=== PATIENT | male | born 1940 | race Caucasian/White ===

== ENCOUNTER 2016-08-26 05:24 | Inpatient (IN) | payer OTHER, BC ==
[~2016-08-26] VITALS: Ht 165.1 cm; Wt 71.8 kg
--- NOTE | ~2016-08-26 | S ---
[facility] [address] [place] [address] SURGICAL PATH RPT PROCEDURE Name: THOMAS TANNER Room #: 435-P ADM IN M.R.#: [id number] Admission: 08/26/16 Date of : 42 Discharge: Report #: [id number] Path Case #: [id number] PATHOLOGY REPORT COLLECTION DATE: 08/26/2016 RECEIVED DATE: 08/26/2016 SUBMITTING PHYS: Dr. Aj Villela OTHER PHYS: Dr. Becca Martinez ADDENDUM REPORT (Order Date: 08/29/2016 15:50) ADDENDUM COMMENT: Acid fast bacillus and Gomori methenamine silver stains performed on A16 are negative for mycobacterial as well as fungal elements, respectively. The originally rendered diagnoses remain unchanged. (IUV:csd; d/t: 08/29/2016) Professional services performed by [facility] at [facility] [address] [place] [address] Technical services performed by [facility] at [address] [place] [address], [address] [place] [address]. ELECTRONICALLY SIGNED BY: Gia Alonso M.D. DATE/TIME:08/29/2016 16:05 SPECIMEN(S) RECEIVED: A.Abdominal wall mass and peritoneum with small bowel * * * * * * * * * * * * FINAL DIAGNOSIS: A. Abdominal wall mass and peritoneum with small bowel, resection: - Mass formed by a multiloculated abscess extending from small bowel subserosa to subcutaneous tissue, measuring 8.7 cm. - Abscess extends to the deep margin. - Overlying small bowel mucosa free of active inflammation, dysplasia or malignancy. - Skin with no diagnostic abnormalities. - Skeletal muscle with reactive changes and foci of acute inflammation adjacent to abscess. - Negative for malignancy. COMMENT: AFB and GMS are ordered and will be reported as an addendum to follow. Electrician Telephone slides are reviewed by Dr. Megan Otero. [facility] [address] [place] [address] SURGICAL PATH RPT PROCEDURE Name: THOMAS TANNER Room #: 435-[facility] IN [facility].#: [id number] Admission: 08/26/16 Date of : 42 Discharge: Report #: [id number] Path Case #: [id number] Findings are discussed with Dr. Villela at 1:15 pm on 08/28/16/ (IUV; 08/28/16) PATHOLOGIST: Gia Alonso M.D. REPORT ELECTRONICALLY SIGNED BY: Gia Alonso M.D. DATE/TIME: 08/28/2016 13:41 * * * * * * * * * * * * GROSS PATHOLOGY: The specimen is received in formalin, labeled "Jacksonabdominal wall mass with peritoneum was small bowel" is a 682 g duff white ellipse of skin with attached soft tissue, peritoneum and small bowel oriented as long stitch superior and short stitch medial. The skin with underlying soft tissue measures 11.3 x 7.8 x 8.2 cm and the attached small bowel segment which is attached to the deep, peritoneal surface, measures 8.7 cm in length by 5.0 cm in circumference. The outer surface of the soft tissue is yellow-duff with a smooth glistening peritoneum on the deep surface. The small bowel serosa is duff-pink, smooth and displays a focal adhesion to the peritoneal surface of the soft tissue, located 2.2 cm from the closest small bowel resection margin. The mesentery runs the entire length of the specimen and measures up to 4.1 cm in thickness. The superior medial soft tissue margin is inked blue, superior lateral soft tissue margin is inked green, inferior medial soft tissue margin is inked yellow, inferior lateral soft tissue margin is inked orange and the deep surface is inked black. The specimen is serially sectioned from medial to lateral to reveal an 8.7 x 7.2 x 6.8 cm cyst containing yellow-duff fibrinous exudate. The cystic lining is duff-pink, and erythematous. There is multifocal fibrosis surrounding the cyst. The lesion is 2.3 cm from the medial margin, 0.6 cm from the superior margin, 0.6 cm from the inferior margin, 0.3 cm from the deep margin, 0.3 cm from the lateral margin and 0.7 cm from the skin surface. The small bowel is opened longitudinally to reveal a duff-pink mucosa with undulating folds and a 0.5 cm shallow depression adjacent to the adhesions. Sectioning through the small bowel reveals intestinal wall ranges in thickness from 0.6 up to 0.8 cm. The mesentery has a soft yellow lobular cut surface. Section code: A1 through A2-perpendicular sections of medial margin, A3-represent sections of superior margin closest to lesion, A4-group sales representative sections of inferior margin closest to lesion, A5-rectal exam sections of deep margin closest to lesion a 6 through A7-group sales representative sections of deep margin adjacent to adherent small bowel, A8-skin surface closest to lesion, A9-perpendicular sections of lateral margin closest to lesion, A10 through X92-znirnybcpfphqh sections of cyst, A14 and O86-jfnftala resection margins from small bowel segment A16 through R42-ddxzcdalmngfpu section of small bowel with adhesions and adjacent soft tissue. [address] [address] SURGICAL PATH RPT PROCEDURE Name: THOMAS TANNER Room #: 435-P ADM IN M.R.#: [id number] Admission: 08/26/16 Date of : 42 Discharge: Report #: [id number] Path Case #: [id number] (DRL; 08/27/2016) CLINICAL HISTORY: Abdominal wall mass. INITIAL CPT CODE(S): A; 32069, 52663, 63159 Professional services performed by [facility] at [facility] [address], [place] [address] Technical services performed by [facility] at [address] [place] [address], [address] [address]. [facility] [address] [place] [address] PHONE: [phone] DIRECTOR: Farhad Bonilla M.D. * * * END OF REPORT * * *
--- NOTE | ~2016-08-26 | O ---
[facility] [place] [address] [place] [address] OPERATIVE REPORT Name: THOMAS TANNER Room #: 448-P ADM IN M.R.#: [id number] Admission: 08/26/16 Attend Phys: Aj Villela MD Discharge: Date of : 42 Report #: [id number] THIS REPORT FOR: //name// CC: Chadwick Graham MD [facility] Aj Davidson MD DATE OF SERVICE: 08/26/2016 PREOPERATIVE DIAGNOSIS: Right abdominal wall mass starting in the oblique muscles. POSTOPERATIVE DIAGNOSIS: Right abdominal wall mass with adherent omentum and small bowel. PROCEDURES PERFORMED: Excision of abdominal mass along with a small portion of omentum and small bowel resection. ANESTHESIA: General. COMPLICATIONS: None. ESTIMATED BLOOD LOSS: 20 mL. DESCRIPTION OF PROCEDURE: With the patient under general anesthesia, IV antibiotic was administered. His abdomen was prepped and draped in sterile fashion. The mass was palpable. An ellipse of skin was drawn over the mass. The skin overlying will be removed after incising through the skin and subcutaneous tissue. Dissection was carried in the subcutaneous tissue using cautery. I did not get into the mass. The fascia surrounding this was excised. It was about a centimeter and a half rim of normal fascia. Inferiorly, the muscle was identified and noted to be slightly thickened. I went ahead and went slightly more inferior to this to get more margin. I am not sure what this lesion is. The inferior epigastric artery was suture ligated with 3-0 Vicryl suture. Posterior sheath was then opened. When I opened the posterior sheath, I realized that there is intra-abdominal adhesion to this mass. Initially, I thought it was the omentum and then realized the portion of small bowel was stuck on there. There were actually 2 loops of small bowel. When I took the first loop back , it felt like it was fairly loose from it. The second loop was more adherent to it. I decided to remove both the segment in the right proximal one. They were adjacent to each other. The transverse colon was also adherent to this, but I could see a separation and the colon was able to be from this. Part of the omentum was also removed. The small bowel was dissected and then divided with HOSEA. The mass was then further dissected laterally and removed intact. Suture was placed medially and also superiorly [address] [address] OPERATIVE REPORT Name: CIROTHOMAS Room #: 448-P [facility] IN M.R.#: [id number] Admission: 08/26/16 Attend Phys: Aj Villela MD Discharge: Date of : 42 Report #: [id number] for the pathologist orientation. The pathologist was called in the room to take the specimen. The bowel was then anastomosed together. Lap tape was placed around the wounds. Also, a towel was placed around this. The end of the staple line at the anterior mesenteric side was trimmed off, with abhishek to each other on the site and HOSEA was put together and then fired, creating a vyfi-ca-sikc functioning anastomosis. The enterotomy was closed with TA60. There was no spillage. The anastomosis was reinforced with 3-0 Vicryl. I could milk HOSEA content through the anastomosis. No leak seen. The small bowel was returned in the abdominal cavity. Irrigation was performed. There was a large defect of the wall that was taken with this mass. A Ventrio patch was placed over this since there was essentially minimal contamination. The mesh was placed. Biological would not probably work in this area since I was not able to bring the tissue together. The Ventrio patch measured 11 x 17 cm. This was placed transversely. The 0 Prolene suture was started medially, 2 separate sutures. One suture was sewn in the upper edge of the mesh and then carried laterally. A second 0 Prolene suture was carried inferiorly. They were tied to each other laterally. Irrigation was performed. Subcutaneous tissue was closed with 3-0 PDS. Skin was closed with 4-0 PDS. Steri-Strips, 4 x 4's and OpSite were used for dressing. The patient tolerated the procedure well. At this point, I do not know what the etiology this is. We are on the cautious side with the small bowel and the omentum that was stuck in the intra-abdominal surface and this was removed. By: 06 0000 Aj Villela MD /nt
--- NOTE | ~2016-08-26 | H ---
[facility] [place] [address] [place] [address] HISTORY AND PHYSICAL Name: THOAMS TANNER Room #: PRE [facility] M.R.#: [id number] Admission: Attend Phys: Aj Villela MD Discharge: Date of : 42 Report #: [id number] THIS REPORT FOR: //name// CC: Dr. Naseem Contreras ADMITTING DIAGNOSIS: Right abdominal mass. HISTORY OF PRESENT ILLNESS: The patient is a 76-year-old who noticed a lump on the right side. This was identified fairly recently. He was having trouble turning in bed, was quite uncomfortable. His appetite has been decreased. This has burning sensation. No weight loss. He does complain of some difficulty with constipation. No difficulty urinating. Patient is under care of Naseem and patient was seen by Dr. Gusman who obtained a CT scan. The patient has a ovoid, lobulated, septated, exophytic mass rising from the oblique muscle. No stranding or inflammatory changes. Possibility of a primary sarcoma was described. This was thought that it could be a hematoma, but less likely given the findings of stranding, inflammatory changes. He is on Plavix, but he never noticed any bruising which I think would be visible if this was a hematoma. Because of the large size and the possibility of having a tumor or possibly even a low-grade malignancy, I recommend that he have this excised. He is brought in for the procedure. 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 No history of prior cancer. He has a history of coronary artery disease. PAST SURGICAL HISTORY: Groin hernia 30 years ago, had a stent 2 years ago. MEDICATIONS: Lisinopril, Plavix, aspirin, atorvastatin. ALLERGIES: He is allergic to ORAL CONTRAST PORTION OF CT. FAMILY HISTORY: Father did of cancer, possible lung cancer. His maternal uncle also had cancer history. SOCIAL HISTORY: The patient is retired. He does smoke 2-pack a day, but has not smoked for about a week and a half. He does not drink currently. He did drink quite a bit in [place] 10 years ago. REVIEW OF SYSTEMS: No chest pain, shortness of breath or palpitation. PHYSICAL EXAMINATION: The patient does have a large right abdominal mass. There is no bruising this area. This is mildly tender to palpation. It does feel somewhat soft. [facility] [address] [place] [address] HISTORY AND PHYSICAL Name: THOMAS TANNER Room #: PRE [facility]#: [id number] Admission: Attend Phys: Aj Villela MD Discharge: Date of : 42 Report #: [id number] IMPRESSION AND PLAN: The patient is a 76-year-old with a mass in the right abdomen. This appears to be coming from the muscle level. This is not subcutaneous in nature. The oblique muscle will have to be removed. I do not know if this extends into the peritoneum or I do not think it goes into the peritoneal cavity, but he could be adherent to the peritoneum. When this is excised, it is going to leave an abdominal wall defect. He will have to have a patch placed here to prevent any hernia formation. This was discussed in detail with the patient. The risk of bleeding, infection, mesh infection was discussed. The patient agrees and wants to proceed. I did speak with Dr. Graham because of the procedure not involving internal organs. Dr. Graham has given cardiac approval, clearance for surgery. He will stop his Plavix 5 days before surgery. By: 2116 [id number] Aj Villela MD /nt
[~2016-08-26 05:24] MED LIST: ASPIR 8181 M1 PO; LIPITOR40 MG PO; LISINOPRIL10 MG PO; LISINOPRIL5 MG OR; PLAVIX 75 MG TA75 M1 PO; ZYVOX600 MG PO
[2016-08-26 07:44] VITALS: BP 79/39
[2016-08-26 13:08] VITALS: BP 88/52
[2016-08-26 16:22] VITALS: BP 90/50
[2016-08-26 20:08] VITALS: BP 86/51
[2016-08-27 00:02] VITALS: BP 80/55
[2016-08-27 04:32] VITALS: BP 97/52
[2016-08-27 05:55] LABS: HEMATOCRIT 39.7 % (42.0-52.0); MCH 26.9 pg (26.0-34.0); MCHC 32.7 g/dL (28.0-37.0); MCV 82.3 fL (80.0-100.0); RBC 4.83 mil/uL (4.50-6.00); WBC 15.8 thou/uL (4.0-11.0)
[2016-08-27 06:08] LABS: CREATININE 1.5 mg/dL (0.7-1.3); POTASSIUM 4.6 mmol/L (3.5-5.1)
[2016-08-27 09:35] VITALS: BP 88/49
[2016-08-27 13:37] LABS: POC BE -4 mmol/L (-2.0 to +3.0); POC CA IONIZED 4.9 mg/dL (4.5-5.3); POC FiO2 100 %; POC GLUCOSE 131 mg/dL (70-99); POC HCO3 22.6 mmol/L (22.0-26.0); POC HEMOGLOBIN 12.2 g/dL (14.0-18.0); POC POTASSIUM 4.4 mmol/L (3.5-5.1); POC SODIUM 136 mmol/L (136-145); POC pCO2 47.2 mmHg (35.0-45.0); POC pH 7.288 (7.360-7.450)
[2016-08-27 20:04] VITALS: BP 124/78
[2016-08-27 23:46] VITALS: BP 101/46
[2016-08-28 04:28] VITALS: BP 105/81
[2016-08-28 05:34] LABS: HEMATOCRIT 39.3 % (42.0-52.0); HEMOGLOBIN 12.7 gm/dL (14.0-18.0); MCH 26.7 pg (26.0-34.0); MCHC 32.4 g/dL (28.0-37.0); MCV 82.4 fL (80.0-100.0); RBC 4.77 mil/uL (4.50-6.00); RDW 15.5 % (10.5-14.5); WBC 13.9 thou/uL (4.0-11.0)
[2016-08-28 05:41] LABS: CALCIUM 9.1 mg/dL (8.5-10.1); CREATININE 1.1 mg/dL (0.7-1.3); POTASSIUM 4.4 mmol/L (3.5-5.1)
[2016-08-28 08:41] VITALS: BP 134/79
[2016-08-28 12:29] VITALS: BP 111/80
[2016-08-28 16:17] VITALS: BP 100/75
[2016-08-28 19:30] VITALS: BP 128/67
[2016-08-29 03:43] VITALS: BP 128/82
[2016-08-29 05:46] LABS: HEMOGLOBIN 12.2 gm/dL (14.0-18.0); MCH 26.4 pg (26.0-34.0); MCHC 32.1 g/dL (28.0-37.0); MCV 82.4 fL (80.0-100.0); RBC 4.61 mil/uL (4.50-6.00); RDW 15.8 % (10.5-14.5); WBC 12.4 thou/uL (4.0-11.0)
[2016-08-29 06:06] LABS: CALCIUM 8.7 mg/dL (8.5-10.1); CREATININE 0.9 mg/dL (0.7-1.3); POTASSIUM 4.2 mmol/L (3.5-5.1)
[2016-08-29 08:00] VITALS: BP 118/69
[2016-08-29 12:07] VITALS: BP 117/90
[2016-08-29 16:11] VITALS: BP 116/77
[2016-08-29 20:30] VITALS: BP 96/71
[2016-08-30 00:40] VITALS: BP 107/74
[2016-08-30 03:20] VITALS: BP 118/85
[2016-08-30 05:54] LABS: ABSOLUTE NEUTROPHILS 8.4 thou/uL (1.4-8.2); BASOPHILS 0.5 % (0.0-2.0); HEMATOCRIT 37.6 % (42.0-52.0); HEMOGLOBIN 12.3 gm/dL (14.0-18.0); LYMPHOCYTES 16.2 % (24.0-44.0); MCH 26.6 pg (26.0-34.0); MCHC 32.8 g/dL (28.0-37.0); MCV 81.3 fL (80.0-100.0); MONOCYTES 9.3 % (1.0-8.0); PLATELET COUNT 386 thou/uL (150-400); RBC 4.63 mil/uL (4.50-6.00); RDW 15.5 % (10.5-14.5); WBC 11.8 thou/uL (4.0-11.0)
[2016-08-30 06:13] LABS: CALCIUM 9.1 mg/dL (8.5-10.1); CREATININE 1.1 mg/dL (0.7-1.3)
[2016-08-30 06:21] LABS: MANUAL DIFF NO
[2016-08-30 07:35] VITALS: BP 122/81
[2016-08-30 13:09] LABS: URINE BILIRUBIN NEGATIVE (Negative); URINE BLOOD 3+ (Negative); URINE GLUCOSE-RANDOM* NEGATIVE (Negative); URINE KETONES NEGATIVE (Negative); URINE NITRITE NEGATIVE (Negative); URINE PROTEIN (DIPSTICK) TRACE (Negative); URINE UROBILINOGEN 0.2 E.U./dl (0.2-1.0)
[2016-08-30 13:10] LABS: URINE COLOR PINK
[2016-08-30 13:17] LABS: BACTERIA 1-9 Few /HPF (None Seen); CASTS None Seen /LPF (None Seen); CRYSTALS None Seen /LPF (None Seen); SQUAMOUS 0-3 Few /LPF (0-3); URINE RBC >20 Many /HPF (0-2); URINE WBC None Seen /HPF (0-5)
[2016-08-30 19:19] VITALS: BP 107/74
[2016-08-31 04:15] VITALS: BP 116/27
[2016-08-31 08:00] VITALS: BP 128/94
[2016-08-31] MEDS ORDERED: TRAMADOL 50 MG50 MG PO (11:51)
[2016-08-31 12:00] VITALS: BP 120/81
[2016-08-31 13:13] VITALS: BP 120/81
[2016-08-31 13:14] VITALS: BP 120/81
[2016-08-31 15:54] VITALS: BP 120/81
== END 2016-08-31 15:06 | disposition home or self-care (01) | DRG 329 ==
LOC: TBA 05:24 → OR 05:24 → TBA 05:25 → OR 12:22 → 4S 13:02
PROVIDERS: Internal Medicine Geriatric Medicine; Surgery
PROC: 0DB80ZZ Excision of Small Intestine, Open Approach (ICD-10-PCS; principal; 2016-08-26)
PROC: 0JB80ZZ Excision of Abdomen Subcutaneous Tissue and Fascia, Open Approach (ICD-10-PCS; principal; 2016-08-26)
DX: K63.1 Perforation of intestine (nontraumatic) (principal); G93.41 Metabolic encephalopathy; K56.7 Ileus, unspecified; J44.9 Chronic obstructive pulmonary disease, unspecified; I10 Essential (primary) hypertension; I73.9 Peripheral vascular disease, unspecified; I25.10 Atherosclerotic heart disease of native coronary artery without angina pectoris; I95.9 Hypotension, unspecified; F17.210 Nicotine dependence, cigarettes, uncomplicated; E78.5 Hyperlipidemia, unspecified; Z98.61 Coronary angioplasty status; Z91.041 Radiographic dye allergy status; Z80.9 Family history of malignant neoplasm, unspecified; Z71.6 Tobacco abuse counseling
CPT/HCPCS: 10100; 50010; 50101; 50386; 50455; 51390; 51391; 51435; 52190; 54109; 54118; 56524; 56525; 56526; 56527; 62110; 62900; 70005

== ENCOUNTER 2019-12-30 07:42 | Inpatient (IN) | payer OTHER ==
[~2019-12-30] VITALS: Ht 170.2 cm; Wt 99.5 kg
[2019-12-30] VITALS (7 sets, daily range): BP systolic 116–156; BP diastolic 70–93
[~2019-12-30 07:42] MED LIST changes: +SYMBICORT160 MCG/4. INH; +TRAMADOL 50 MG50 MG PO
[2019-12-30] MEDS ORDERED: CARVEDILOL12.5 MG PO (07:43)
[2019-12-30] MEDS ORDERED: BENAZEPRIL HCL5 MG PO (08:52)
[2019-12-30 09:05] LABS: HEMATOCRIT 45.3 % (42.0-52.0); HEMOGLOBIN 14.7 gm/dL (14.0-18.0); MCH 24.9 pg (26.0-34.0); MCHC 32.5 g/dL (28.0-37.0); MCV 76.6 fL (80.0-100.0); RBC 5.92 mil/uL (4.50-6.00); RDW 21.7 % (10.5-14.5); WBC 9.4 thou/uL (4.0-11.0)
[2019-12-30 09:26] LABS: CALCIUM 9.2 mg/dL (8.5-10.1); CREATININE 1.5 mg/dL (0.7-1.3); POTASSIUM 4.5 mmol/L (3.5-5.1)
[2019-12-30 13:29] LABS: APTT 26.9 Seconds (24.5-32.8); PROTIME 10.7 Seconds (9.3-11.4)
[2019-12-30 13:39] LABS: ALBUMIN 3.2 g/dL (3.4-5.0); CALCIUM 8.6 mg/dL (8.5-10.1); CREATININE 1.4 mg/dL (0.7-1.3); POTASSIUM 4.7 mmol/L (3.5-5.1); TOTAL BILIRUBIN 0.5 mg/dL (0.2-1.0); TOTAL PROTEIN 6.7 g/dL (6.4-8.2)
--- NOTE | 2019-12-30 15:35 | NUR ---
REC PT FROM [employer] ADMINISTRATOR, OFF RESTRICTIONS OF BED REST, A&0X4, SLIGHTLY GRAND RONDE TRIBES, L GROIN SITE MYNX CDI SOFT. PT AMB STEADY, HAS CHRONIC BACK PAIN. WILL PERFORM ADMISSION AND ASSESS/MEDS. CAME IN WITH HIS OWN 02, WILL PLACE LABEL. REPORTS OF POSSIBLE SURGERY TOMORROW PENDING COVID RESULTS, SWAB TAKEN ALREADY. ENCOURAGED PT TO USE CALL LIGHT FOR ANY NEEDS. WILL CONTINUE TO MONITOR. SEE SEPARATE INTERVENTIONS FOR ASSESSMENTS
--- NOTE | 2019-12-30 16:37 | CATHLAB ---
[facility] [place] [address] [place] [address] INVASIVE PROCEDURE REPORT Name: THOMAS TANNER Room #: 210-P [facility] SANGEETHA Tolentino#: [id number] Admission: 12/30/19 Attend Phys: Maxim Colon MD Discharge: Date of : 42 Report #: [id number] THIS REPORT FOR: cc: Becca Contreras MD, Stany A. MD Lundgren, Craig H. MD [facility] ~ APPROVED REPORT Study performed: 12/30/2019 11:12:30 Patient Details The patient is a 79 year-old male Event Personnel Lillian Otero RTR, DAR Jimenezub, Gui Hernandez RTR Monitor, Chadwick Graham Roll Over Loader, Jose Mary RN pewter caster Performed Art Access - L femoral artery* Left Heart Cath w/or w/o Coronaries [id number] [facility] [address] Initial Mod Sed Same Phys/QHP Gr5y 433673 25544 Mod Sed Same Phys/QHP Ea [id number] Hemostasis w/ Mynx Indication Chest pain Procedure Narrative The was infiltrated with 1% Lidocaine subcutaneous anesthesia. A SHEATH BRITE-TIP 6F X 11CM ([id number]) sheath was inserted into the LFA^. Coronary angiography was performed using coronary diagnostic catheters. The right coronary system was accessed and visualized with a JR4 catheter. The left coronary system was accessed and visualized with a JL4 catheter. The left ventricle was accessed and visualized with a PIGTAIL catheter. Closure device was deployed with a 6 Fr MYNXGRIP 6/7F [id number]. The patient tolerated the procedure well and there were no complications associated with the procedure. There was no hematoma. Intraoperative Conscious Sedation Sedation start time: 1007 Case end Time: 1216 Fentanyl 100 mcg Versed 2 mg Fluoro Time: 12.[address] [facility] [place] [address] INVASIVE PROCEDURE REPORT Name: CIROTHOMAS Room #: 210-P [facility]#: [id number] Admission: 12/30/19 Attend Phys: Maxim Colon, Discharge: Date of : 42 Report #: [id number] Dose: DAP 53264.10 cGycm2 1708 mGy Contrast Type and Amount: Omnipaque 118 ml Coronary Angiography The patient's coronary anatomy is right dominant. Diagnostic Cath Left Main Normal left main LAD 30-40% mid LAD stenosis just after the first diagonal branch. The LAD was otherwise angiographically normal. Diagonal 1 Single, large anterolateral branch, angiographically normal. Circumflex The circumflex was large and angiographically normal OM1 Moderate sized first marginal branch, angiographically normal Right Coronary The right coronary exhibited mild 30% mid vessel plaquing R PDA Normal posterior descending RPLV Normal posterior lateral branch Left Ventriculography The left ventricle is normal in size with normal contractility. The left ventricular ejection fraction is estimated to be 60%. Left ventricular wall motion abnormalities are not present. There is no mitral insufficiency. Hemodynamics The aortic pressure is 157/82 mmHg with a mean of 93 mmHg. The left ventricular pressure is 169/1 mmHg with a mean of mmHg. The left ventricular end diastolic pressure is 28 mmHg. Conclusion 1. Normal global and regional left ventricular systolic function. EF 60%. No mitral insufficiency. 2. Normal left main 3. LAD: 30-40% mid LAD stenosis 4. Circumflex, angiographically normal 5. Right coronary with 30% mid vessel plaquing. <ELECTRONICALLY SIGNED> By: Chadwick Graham MD, FACC 12/30/19 163 [id number] 163 Chadwick Graham MD, FACC /INF
[2019-12-31] VITALS (8 sets, daily range): BP systolic 117–135; BP diastolic 56–86
--- NOTE | 2019-12-31 08:00 | NUR ---
PATIENT IS PROGRESSING SLOWLY IN HIS CARE PLAN. VITAL SIGNS STABLE WITH PATIENT HAVING NO COMPLAINTS OF PAIN OR NAUSEA. FULLY ORIENTED THROUGHOUT SHIFT. BREATHING STABLE ON HOME DOSE OF OXYGEN EVIDENCED BY ASSESSMENTS AND SPOT OXYGENATION CHECKS. UP WITH ASSISTANCE TO USE URINAL MULTIPLE TIMES THROUGHOUT SHIFT INCIDENT FREE. PATIENT KEPT NPO FROM MIDNIGHT ON IN ANTICIPATION OF TODAYS PROCEDURE. CONTINUE PLAN OF CARE.
--- NOTE | 2019-12-31 08:01 | EKG ---
[facility] [address] [place] [address] ELECTROCARDIOGRAM REPORT Name: THOMAS TANNER Room #: 210-P ADM IN M.R.#: [id number] Admission: 12/30/19 Attend Phys: Zak Yanez MD Discharge: Date of : 42 Report #: [id number] THIS REPORT FOR: cc: Becca Contreras MD, Stany A. MD Lundgren,Chadwick [place] MD [facility] ~ THIS REPORT FOR: //name// [facility] Test Date: 2019-12-30 Test Time: 08:43:54 Pat Name: THOMAS TANNER Department: Room: 210 Gender: M Curatorial Specialist: APRIL : 1940 Requested By: Maxim Colon Order Number: [id number] MD: Chadwick Graham Measurements Intervals [place] Rate: 64 P: 4 NV: 156 QRS: -7 QRSD: 94 T: 12 QT: 454 QTc: 469 Interpretive Statements Sinus rhythm Normal tracing Compared to ECG 02/13/2010 15:08:21 Premature ventricular complexes are no longer present Electronically Signed On 12-31-2019 8:01:31 CDT by Chadwick Graham [email or web address] <ELECTRONICALLY SIGNED> By: Chadwick Graham MD, [facility] 12/31/19 0801 Chadwick Graham MD, [facility] /EPI
--- NOTE | 2019-12-31 13:57 | O ---
[facility] [place] [address] [place] [address] OPERATIVE REPORT Name: THOMAS TANNER Room #: 150-17 ADM IN M.R.#: [id number] Admission: 12/31/19 Attend Phys: Maxim Colon MD Discharge: Date of : 42 Report #: [id number] THIS REPORT FOR: cc: Becca Contreras MD,Becca Sun,Hakeem Jaimes MD ~ CC: Maxim Contreras DATE OF SERVICE: 12/31/2019 PREOPERATIVE DIAGNOSIS: Right carotid artery stenosis. POSTOPERATIVE DIAGNOSIS: Right carotid artery stenosis. OPERATION: Right carotid endarterectomy with patch closure. SURGEON: Hakeem Sun MD CHEST PAIN COORDINATOR: DEJON Bojorquez ANESTHESIA: General. INDICATIONS: The patient is a 79-year-old with a 99% right internal carotid stenosis. The patient presented to Dr. 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 The carotid lesion was asymptomatic per se, but with slow flow. We felt that this required urgent attention. FINDINGS AND TECHNIQUE: After general anesthesia was established, an oblique right neck incision was made. Common facial vein was divided. Common internal and external carotid arteries were identified and controlled. The 10,000 units of heparin were given. The carotid vessels were occluded. Continuous electroencephalographic monitoring was performed. When the carotid vessels were occluded, no EEG changes were noted. The arteriotomy was made. The endarterectomy was performed without creating a distal flap. Neointima was inspected and all loose debris was removed. Tacking sutures were placed at the transition zone. When the endarterectomy was deemed to be satisfactory, the arteriotomy was closed using running Prolene and a thin-walled pericardial patch. Prior to finishing the closure, the carotid vessels were backbled and the artery was flushed with heparinized saline. Flow was established first through the external, then the internal carotid artery. [facility] [address] [place] [address] OPERATIVE REPORT Name: CIROTHOMAS Room #: 150-17 ADM IN M.R.#: [id number] Admission: 12/31/19 Attend Phys: Maxim Colon MD Discharge: Date of : 42 Report #: [id number] 50 mg of protamine was given to reverse the heparin. When hemostasis was satisfactory, wound was irrigated with antibiotic solution. Brock drain was brought out through the bottom pole of the incision and the wound was closed in layers. The patient was taken to the recovery area in good condition having tolerated the procedure well. All counts reported as correct. <ELECTRONICALLY SIGNED> By: Hakeem Sun MD 12/31/19 1357 1343 1352 Hakeem Sun MD /nt
--- NOTE | 2019-12-31 20:01 | NUR ---
ADMITTED PATIENT TO ICU FROM PACU AT 1415. HR 50s, BP 115-120s/60s PER A-LINE, ON BiPAP 70% FIO2; 8/16; PATIENT AWAKE, DROWSY; F/C X 4. BELONGING (CLOTHING, O2 PUMP) AT THE BEDSIDE. ADMISSION DOCUMENTED CHARTED AND COMPLETED PER PROTOCOL. DR. VELÁSQUEZ AT THE BEDSIDE, R CAROTID DRESSING WITH BENITEZ INTACT. WILL CONTINUE TO MONITOR.
[2020-01-01] VITALS (9 sets, daily range): BP systolic 76–98; BP diastolic 47–62
[2020-01-01 05:28] LABS: MCH 24.4 pg (26.0-34.0); MCV 78.7 fL (80.0-100.0); RBC 5.07 mil/uL (4.50-6.00); RDW 21.6 % (10.5-14.5); WBC 11.4 thou/uL (4.0-11.0)
[2020-01-01 05:41] LABS: CALCIUM 7.8 mg/dL (8.5-10.1); CREATININE 1.2 mg/dL (0.7-1.3); POTASSIUM 4.5 mmol/L (3.5-5.1)
[2020-01-01 05:45] LABS: HEMOGLOBIN 12.4 gm/dL (14.0-18.0)
[2020-01-01 06:22] LABS: URINE BILIRUBIN NEGATIVE (Negative); URINE BLOOD 3+ (Negative); URINE CLARITY CLEAR; URINE COLOR YELLOW; URINE GLUCOSE-RANDOM* NEGATIVE (Negative); URINE KETONES 1+ (Negative); URINE NITRITE-REFLEX NEGATIVE (Negative); URINE PROTEIN (DIPSTICK) NEGATIVE (Negative); URINE SPECIFIC GRAVITY >= 1.030 (1.005-1.035); URINE UROBILINOGEN 0.2 E.U./dl (0.2-1.0)
[2020-01-01 06:30] LABS: URINE LEUKOCYTES-REFLEX 1+ (Negative)
[2020-01-01 06:45] LABS: CASTS None Seen /LPF (None Seen); MUCUS >6 Heavy strn/LPF (None Seen); SQUAMOUS 0-3 Few /LPF (0-3)
[2020-01-01 06:46] LABS: URINE WBC-REFLEX 6-15 Few /HPF (0-5)
[2020-01-01 06:48] LABS: BACTERIA-REFLEX 1-9 Few /HPF (None Seen); CRYSTALS None Seen /LPF (None Seen); URINE RBC >20 Many /HPF (0-2)
[2020-01-01 06:51] LABS: YEAST-REFLEX Present (None Seen)
--- NOTE | 2020-01-01 07:16 | NUR ---
PT ALERT AND ORIENTED. VITAL SIGN STABLE THROUGHOUT THE NIGHT. PT DID NOT COMPLAIN OF ANY PAIN. URINE OUTPUT ADEQUATE. PT ABLE TO SWALLOW ICE CHIPS. PT DESAT DURING SLEEP AND OXYGEN NEED UP TO HIGH FLOW 10L. PRN BIPAP AT NIGHT. PT VITAL SIGNS COULD NOT BE TRANSFERED TO [facility] THROUGH [employer] FOR THE ENTIRE NIGHT. DAY RN NOTIFIED. [employer] [facility] CALLED ABOUT IT.
--- NOTE | 2020-01-01 16:52 | NUR ---
PT CARE ASSUMED APPROX 1300. ASSESSMENTS CHARTED. PT DENIES PAIN AND SOA. BP AND HR SLIGHTLY LOW. PT ASYMPTOMATIC. VITALS SIGNS OTHERWISE STABLE. PT EDUCATED ON VS. REINFORCEMENT NEEDED. UP WITH SBA. RIGHT NECK BENITEZ DSG HAS DRIED BLOOD ON IT. DR CERDA NOTIFIED ON ROUNDS. AREA MARKED. DSG INTACT AND VAC FUNCTIONING PROPERLY. PT TOLERATING POC. DENIES QUESTIONS OR CONCERNS REGARDING POC. WILL CONTINUE WITH POC.
--- NOTE | 2020-01-01 17:56 | NUR ---
PT'S BP LOW AGAIN AT THIS TIME. DR MCGEE PAGED AND NEW ORDERS TO CHART. PT ALSO REMAINS ASYMPTOMATIC.
[2020-01-01 19:04] LABS: HEMATOCRIT 39.9 % (42.0-52.0); HEMOGLOBIN 12.3 gm/dL (14.0-18.0)
[2020-01-02] VITALS (7 sets, daily range): BP systolic 82–109; BP diastolic 53–69
--- NOTE | 2020-01-02 07:48 | NUR ---
ASSUME CARE 1900. PT STABLE. BP/HR RUN LOW BUT PT IS ASSYMPTOMATIC. NO DISTRESS NTOED. VERY SCANT BLEEDING NOTED ON DRAINAGE. ASSESSMENT CHARTED. PROGRESSING WELL WITH POC. SB ON MONITOR WITH HR DIPPING TO 40s AND BP TO 70s SYSTOLIC. BP SEEMS TO BE TRENDING UP. PLAN IS POSSIBLE DISCHARGE HOME WITH O2. SATS 91-92% ON 7LNC. WILL CONTINUE TO MONITOR AND FOLLOW WIHT POC
[2020-01-02 11:36] LABS: ABSOLUTE NEUTROPHILS 8.2 thou/uL (1.4-8.2); BASOPHILS 0.1 % (0.0-2.0); HEMATOCRIT 39.1 % (42.0-52.0); HEMOGLOBIN 12.1 gm/dL (14.0-18.0); LYMPHOCYTES 11.7 % (24.0-44.0); MCH 24.7 pg (26.0-34.0); MCV 79.7 fL (80.0-100.0); MONOCYTES 8.1 % (1.0-8.0); PLATELET COUNT 221 thou/uL (150-400); POLYS 80.1 % (36.0-66.0); RBC 4.91 mil/uL (4.50-6.00); RDW 21.6 % (10.5-14.5); WBC 10.3 thou/uL (4.0-11.0)
[2020-01-02 11:46] LABS: ALBUMIN 2.8 g/dL (3.4-5.0); CALCIUM 8.2 mg/dL (8.5-10.1); CREATININE 1.2 mg/dL (0.7-1.3); MAGNESIUM 2.2 mg/dL (1.8-2.4); POTASSIUM 4.2 mmol/L (3.5-5.1); TOTAL BILIRUBIN 0.3 mg/dL (0.2-1.0); TOTAL PROTEIN 6.3 g/dL (6.4-8.2)
[2020-01-02 13:01] LABS: BE(vivo) -1.9 mmol/L (-2 to +3); HCO3 23.9 mmol/L (22.0-26.0); PCO2 44.8 mmHg (35.0-45.0); PO2 65.1 mmHg (80.0-100.0); pH 7.345 (7.360-7.450); sO2 91.7 % (92.0-98.0)
[2020-01-02 14:07] LABS: MACROCYTES 1+; MICROCYTES 2+
--- NOTE | 2020-01-02 18:53 | NUR ---
PT ALERT AND ORIENTED TIMES FOUR. BP AND HR LOW. 96% 6L. PT DENIES PAIN. BENITEZ DRESSING TO RIGHT NECK INTACT, SOME DRAINAGE DR AWARE. PT UP SITTING IN THE CHAIR THIS SHIFT. PT TOLERATES MEDS AND MEALS. PT AT BEDSIDE THIS AFTERNOO. P[T SLOWLY PROGRESSING TOWRADS POC GOALS.
[2020-01-03 02:54] VITALS: BP 114/66
[2020-01-03 06:04] LABS: HEMATOCRIT 39.9 % (42.0-52.0); HEMOGLOBIN 12.4 gm/dL (14.0-18.0); MCH 24.7 pg (26.0-34.0); MCHC 31.2 g/dL (28.0-37.0); MCV 79.2 fL (80.0-100.0); RBC 5.04 mil/uL (4.50-6.00); RDW 21.9 % (10.5-14.5); WBC 10.1 thou/uL (4.0-11.0)
[2020-01-03 06:12] LABS: CREATININE 1.1 mg/dL (0.7-1.3); PHOSPHORUS 2.2 mg/dL (2.5-4.9); POTASSIUM 4.2 mmol/L (3.5-5.1)
[2020-01-03 07:30] VITALS: BP 124/69
--- NOTE | 2020-01-03 07:57 | NUR ---
PATIENT PREFERS TO SLEEP ON THE RECLINER.MIRALAX GIVEN,NO BM YET.O2 6L NC.POC CONTINUED.
[2020-01-03 11:25] VITALS: BP 118/78
[2020-01-03 16:00] VITALS: BP 129/78
--- NOTE | 2020-01-03 16:06 | PATH ---
[facility] [address] [place] [address] PATHOLOGY RPT PROCEDURE Name: HUSEYIN SOUTH Room #: 210-P ADM IN M.R.#: [id number] Admission: 12/31/19 Date of : 44 Discharge: Report #: [id number] Path Case #: [id number] [facility] Accession Number: [id number] . 01 Material submitted: . carotid body - RIGHT CAROTID PLAQUE. Modifiers: right . 01 Clinical history: . CAROTID ARTERY DISEASE CATH/AOR ABD RO/CLAUDICATION . 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 (IUV:pit 01/03/2020) QTP 01/03/2020 1341 Local . 02 Electronically signed: . Gia Alonso MD, Pathologist NPI- [id number] . 01 Gross description: . The specimen is received in formalin, labeled "Huseyin South, right carotid plaque" and consists of a rubbery to calcified segment of yellow orange tissue measuring 3.2 x 1.5 x 0.9 cm. Sectioning reveals a calcified stenotic lumen. [employer]el [employer] sections are submitted in A1 following decalcification. (SDY; 01/01/2020) SYU/SYU 01/01/2020 1034 Local . 02 Pathologist provided ICD-10: I65.21 . 02 CPT . 221627, [id number] Specimen Comment: A courtesy copy of this report has been sent to [phone] Specimen Comment: [phone], , Specimen Comment: Report sent to ,DR PECK,DR VILLEGAS / DR DENIS Performed at: [address] [id number] MD Niko Narayan MD Phone: [phone] Performed at: [address] [id number] [address] [address] PATHOLOGY RPT PROCEDURE Name: HUSEYIN SOUTH Room #: 210-P [facility] IN M.R.#: [id number] Admission: 12/31/19 Date of : 44 Discharge: Report #: [id number] Path Case #: [id number] MD Gia Alonso MD Phone: [phone]
--- NOTE | 2020-01-03 17:45 | NUR ---
Met with patient. he resides at home with in raised ranch home. Approx 10-13 steps from garage and 6 steps in front door. He has home oxygen [facility]u on 3 liters but now on 6 liters. He thinks his concentrator goes to 10 Liters. He wants HH at co and wants [facility] care. He reports has used in past. Referral to [facility] for review. PCP Dr Gusman.
--- NOTE | 2020-01-03 18:37 | NUR ---
ASSUMED CARE PT SHIFT CHANGE. ASSESSMENTS CHARTED. MEDS GIVEN PER JUL. PT ALERT AND ORIENTED.VSS DENIES PAIN. O2 SATS WNL ON 5-6L. ATTEMPTED TO WEAN PT TO 4L, O2 DOWN TO 86. PULMONARY NOTIFIED. PT UP WITH PHYS THERPAY TOLERATING WELL. BENITEZ DRESSING ON RIGHT NECK CHANGED BY CTS. APPETITE ADEQUATE. SUPPOSITORY ORDERED THIS SHIFT, PT HAD SUCCESSFUL BM. UPDATED ON POC. PT CURRENTLY RESTING IN BED DENYING OF NEEDS. WILL CONT TO MONITOR AND FOLLOW POC.
[2020-01-03 20:29] VITALS: BP 147/84
[2020-01-04 04:45] VITALS: BP 147/94
[2020-01-04 05:38] LABS: BASOPHILS 0.1 % (0.0-2.0); HEMOGLOBIN 13.1 gm/dL (14.0-18.0); LYMPHOCYTES 12.1 % (24.0-44.0); MCH 24.5 pg (26.0-34.0); MCHC 31.1 g/dL (28.0-37.0); MCV 78.7 fL (80.0-100.0); MONOCYTES 11.6 % (1.0-8.0); PLATELET COUNT 239 thou/uL (150-400); POLYS 76.2 % (36.0-66.0); RBC 5.33 mil/uL (4.50-6.00); RDW 21.4 % (10.5-14.5); WBC 10.5 thou/uL (4.0-11.0)
--- NOTE | 2020-01-04 05:44 | NUR ---
SMALL HARD BM X 1 AFTER GOLYTELY.O2 6L NC.WAS NOT ABLE TO SLEEP.PATIENT IS HOPING TO GO HOME TODAY.POC CONTINUED.
[2020-01-04 06:14] LABS: CALCIUM 8.7 mg/dL (8.5-10.1); CREATININE 1.2 mg/dL (0.7-1.3); POTASSIUM 4.5 mmol/L (3.5-5.1); TOTAL BILIRUBIN 0.4 mg/dL (0.2-1.0); TOTAL PROTEIN 6.7 g/dL (6.4-8.2)
[2020-01-04 08:00] VITALS: BP 143/86
[2020-01-04] MEDS ORDERED: DOXYCYCLINE HYC50 MG PO (08:51)
[2020-01-04] MEDS ORDERED: IPRAT-ALBUT 0.5-3 ML INH (08:52)
[2020-01-04] MEDS ORDERED: LANTUS100 UNIT/M SUBQ (08:53)
[2020-01-04] MEDS ORDERED: PREDNISONE 20 M20 M1 PO (08:53)
[2020-01-04] MEDS ORDERED: TRIPLE ANTIBIOT14 GM TOP (08:54)
[2020-01-04 11:18] VITALS: BP 154/86
--- NOTE | 2020-01-04 17:58 | NUR ---
Patient to not dc today. Sp with RT patient desated with need to 8-10 liters of oxygen for recovery. Cont plan home with HH once stable.
[2020-01-04 20:20] VITALS: BP 103/73
--- NOTE | 2020-01-04 20:23 | NUR ---
ASSUMED CARE PT SHIFT CHANGE. ASSESSMENTS CHARTED.MEDS GIVEN PER JUL. PT ALERT AND ORIENTED. VSS. DENIES PAIN. O2 SATS WNL ON 5-6L O2. REST AND EXERCISE DONE TODAY REFER TO RESULTS. CT SCAN THIS SHIFT- REFER TO RESULTS. ORDERS RECEIVED FOR ONE TIME LASIX. PT DIURESING APPROPRIATELY. SPOUSE VISITED WITH PT. PT DISAPPOINTED IN DC BEING TOMORROW INSTEAD OF TODAY. RIGHT NECK BENITEZ DRESSING REMAINS INTACT WITH DRAINAGE. PT CURRENTLY UP IN CHAIR. DENIES NEEDS. REPORT GIVEN TO CECILIO FOX.
[2020-01-05] VITALS (8 sets, daily range): BP systolic 100–144; BP diastolic 60–96
--- NOTE | 2020-01-05 05:19 | NUR ---
PT ALERT AND ORIENTED. VITALS STABLE. SURGICAL DRESSING SITE INTACT. PT DENIES CHEST PAIN, NAUSEA, VOMITING OR DIARRHEA. SR ON THE MONITOR. PT SLEPT IN THE CHAIR. ANTICIPATED TO DC TODAY. NO OTHER CONCERNS. WILL CONTINUE TO MONITOR.
[2020-01-05 13:19] LABS: CALCIUM 9.9 mg/dL (8.5-10.1); CREATININE 1.5 mg/dL (0.7-1.3); MAGNESIUM 2.2 mg/dL (1.8-2.4); POTASSIUM 4.3 mmol/L (3.5-5.1)
--- NOTE | 2020-01-05 13:37 | NUR ---
Patient not stable for discharge, cardiology consulted.
[2020-01-06] VITALS: BP 131/90
--- NOTE | 2020-01-06 02:57 | NUR ---
CARE ASSUMED 1900. PT ALERT AND ORIENTED. VSS. DENIES SOB , OR CHEST PAIN. ON 5L NC. PT ON CARDIZEM DRIP AT 5MG/HR. BP STABLE. HEART RHYTHM BACK TO SINUS. DENIES ANY PALPITATIONS. PT HAD ABOUT 3 EPISODES OF NONE SUSTAINING VTACH, OTHERWISE NO ANY OTHER CONCERNS OR EVENTS OVERNIGHT. WILL CONTINUE TO MONITOR.
[2020-01-06 03:40] VITALS: BP 113/80
[2020-01-06 08:16] VITALS: BP 106/76
--- NOTE | 2020-01-06 09:09 | EKG ---
[facility] [place] [address] ELECTROCARDIOGRAM REPORT Name: THOMAS TANNER Room #: 210-P ADM IN M.R.#: [id number] Admission: 12/31/19 Attend Phys: Maxim Colon MD Discharge: Date of : 44 Report #: [id number] THIS REPORT FOR: cc: Becca Contreras MD, Stany A. MD Couchonnal, Luis F. MD ~ THIS REPORT FOR: //name// [facility] Test Date: 2020-01-05 Test Time: 13:02:52 Pat Name: THOMAS TANNER Department: Room: 210 P Gender: M Cook Seafood: Teresita GARCIA : 1940 Requested By: Zak Yanez Order Number: [id number] MD: Sony Young Measurements Intervals [place] Rate: 105 P: 7 NM: 146 QRS: -10 QRSD: 80 T: 11 QT: 385 QTc: 509 Interpretive Statements Sinus tachycardia Nonustainted VT Compared to ECG 12/30/2019 08:43:54 Electronically Signed On 01-06-2020 9:09:21 CDT by Sony Young [email or web address] <ELECTRONICALLY SIGNED> By: Sony Young MD 01/06/20 0909 1302 1302 Sony Young MD /EPI
--- NOTE | 2020-01-06 09:12 | EKG ---
[facility] [place] [address] [place] [address] ELECTROCARDIOGRAM REPORT Name: THOMAS TANNER Room #: 210-P ADM IN M.R.#: [id number] Admission: 12/31/19 Attend Phys: Maxim Colon MD Discharge: Date of : 44 Report #: [id number] THIS REPORT FOR: cc: Becca Contreras MD, Stany A. MD Couchonnal, Luis F. MD ~ THIS REPORT FOR: //name// [facility] Test Date: 2020-01-05 Test Time: 15:40:02 Pat Name: THOMAS TANNER Department: Room: 210 P Gender: M Cardiopulmonary Specialist: Teresita GARCIA : 1940 Requested By: Noni Driver Order Number: [id number] MD: Sony Young Measurements Intervals [place] Rate: 113 P: NV: QRS: -11 QRSD: 85 T: 31 QT: 359 QTc: 493 Interpretive Statements Atrial fibrillation Ventricular tachycardia, unsustained Borderline prolonged QT interval Compared to ECG 01/05/2020 13:02:52 Sinus tachycardia no longer present Ventricular tachycardia still present Electronically Signed On 01-06-2020 9:12:28 CDT by Sony Young [email or web address] <ELECTRONICALLY SIGNED> By: Sony Young MD 01/06/20 0912 1540 1540 Sony Young MD /EPI
[2020-01-06 11:20] VITALS: BP 98/64
--- NOTE | 2020-01-06 11:48 | NUR ---
INFORMED RN THAT NEW O.T. ORDERS ARE NEEDED DUE TO CHANGE OF CONDITION FROM SURGERY. RN WILL REQUEST FROM PHYSICIAN.
[2020-01-06 15:15] VITALS: BP 100/65
[2020-01-06] MEDS ORDERED: HOME OXYGEN (15:28)
--- NOTE | 2020-01-06 15:47 | HC ---
[facility] [place] [address] CONSULTATION Name: THOMAS TANNER Room #: 210-P [facility] IN M.R.#: [id number] Admission: 12/31/19 Attend Phys: Maxim Colon MD Discharge: Date of : 44 Report #: [id number] THIS REPORT FOR: cc: Becca Contreras MD,Hakeem Skaggs MD, MD ~ CC: Maxim Contreras DATE OF SERVICE: 12/31/2019 We were asked to see the patient by Dr. Colon. HISTORY OF PRESENT ILLNESS: The patient is a 79-year-old with known coronary artery disease, who presented for cardiac catheterization and peripheral artery catheterization. The patient was found to have a 99% right internal carotid stenosis. The patient was admitted for urgent right carotid endarterectomy. PAST HISTORY: Significant for coronary artery disease. The patient states that he had a cardiac event and was seen in [facility] several months ago. No stents or surgery were recommended at that time. The patient also has hyperlipidemia, hypertension, and peripheral arterial occlusive disease at present with limiting claudication in both lower extremities. PAST MEDICAL HISTORY: Includes iliac stent placement. MEDICATIONS: At home includes Symbicort inhalers, carvedilol, benazepril, atorvastatin, clopidogrel and aspirin. ALLERGIES: None known. SOCIAL HISTORY: The patient is a longtime smoker with at least 40 pack years. The patient is retired, lives with his in [place], [place]. REVIEW OF SYSTEMS: GENERAL: No fever or chills. No other COVID symptoms. EYES: No vision change. HEENT: No headache, hearing problems, sore throat. RESPIRATORY: Denies shortness of breath or cough. CARDIAC: Denies chest pain recently. GASTROINTESTINAL: Denies nausea, vomiting. GENITOURINARY: Denies burning, frequency, urgency. MUSCULOSKELETAL: Claudication, lower extremities. No bone or joint pain. SKIN: No rash or infection. NEUROLOGIC: No specific motor or sensory dysfunction. ENDOCRINE: No goiter, no tremor. [facility] [address] [place] [address] CONSULTATION Name: THOMAS TANNER Room #: 210-P [facility] IN M.R.#: [id number] Admission: 12/31/19 Attend Phys: Maxim Colon MD Discharge: Date of : 44 Report #: [id number] HEMATOLOGIC: No easy bruisability or bleeding. PHYSICAL EXAMINATION: The patient is lying in bed after his cardiac catheterization. VITAL SIGNS: Temperature 36.6, heart rate 55, blood pressure 116/70. GENERAL: The patient is a pleasant fellow in no distress, in bed, status post cath. HEENT: No scleral icterus, no arcus. NECK: No mass. I do not hear carotid bruit. CHEST: Clear to auscultation. HEART: Rhythm regular, no murmur. ABDOMEN: Protuberant, soft with what appears to be an incisional hernia on the right lateral abdomen. EXTREMITIES: No clubbing, cyanosis or edema. VASCULAR: I do not feel distal pulses. SKIN: No rash or infection. NEUROLOGIC: No motor or sensory dysfunction. MUSCULOSKELETAL: No bone or joint asymmetry or deformity. ASSESSMENT AND PLAN: I reviewed the findings from the arteriogram with the patient. There is a high-grade carotid lesion and although it is asymptomatic, we think the patient is at risk for thrombosis and/or embolism. Risks and details of surgery were discussed. Options and alternatives were reviewed. The patient understands all of this and wishes to proceed. We will try to schedule surgery for the morning of 12/30. Thank you for the consult. <ELECTRONICALLY SIGNED> By: Hakeem Sun MD 01/06/20 1547 1349 1546 Hakeem Sun MD /nt
--- NOTE | 2020-01-06 15:50 | NUR ---
[facility] can accept patient but cannot see until Friday. Patient is agreeable to not see until Friday. Patient unsure of concentrator at home he thinks it goes to 10 liters. sp with [facility] they report its 5 Liter concentrator. WHen initially arranged patient on 3 Liters therefor they would not have brought at 10 liter it would have been at 5 liter. rec script stating patient on 5 liter currenlty and may need 6-7 liters as needed with activity. Sent pertinent info to Liss for review. Alerted of possible dc in am. Called and discussed so she is aware [facility] may call to deliver concentrator. She reports their pharmacy called her on and said there was insulin at pharmacy. She reports expensive and patient was not discharged home at the time so she did not pickling grader insulin.
[2020-01-06 20:40] VITALS: BP 108/69
[2020-01-07 04:49] VITALS: BP 118/75
--- NOTE | 2020-01-07 05:34 | NUR ---
CARE ASSUMED AT 1900. PT ALERT AND ORIENTED. VSS. DENIES SOB, CHEST PAIN OR NAUSEA. SR ON THE MONITOR. 3 BEATS RUN OF VTACH OVER THE NIGHT OTHERWISE STABLE. PT ANTICIPATES TO DC THIS MORNING . NO OTHER CONCERNS. ALL OTHER ASSESSMENTS DOCUMENTED. WILL CONTINUE TO MINITOR AND FOLLOW POC.
[2020-01-07] MEDS ORDERED: TAMBOCOR 100 M100 M1 PO (07:39)
[2020-01-07 08:18] VITALS: BP 138/111
[2020-01-07] MEDS ORDERED: SPIRIVA18 MCG INH (10:23)
[2020-01-07] MEDS ORDERED: PREDNISONE 20 M20 MG PO (10:23)
[2020-01-07] MEDS ORDERED: ALBUTEROL2.5 MG/0.5 INH (10:23)
--- NOTE | 2020-01-07 11:26 | NUR ---
mannie lyle at [facility] and she stated, "we alreay have everything we needs and those orders have been given to a racing car driver to have 10L concnetrator brought to the pt's home."
[2020-01-07 11:40] VITALS: BP 154/86
[2020-01-07 12:33] VITALS: BP 97/68
[2020-01-07 13:12] VITALS: BP 154/86
[2020-01-07 14:28] VITALS: BP 154/86
--- NOTE | 2020-01-07 14:32 | NUR ---
ASSESSMENT DOCUMENTED. VSS. SR ON THE MONITOR. NO PAIN/CHEST PAIN REPORTED BY THE PT. IV AND HEART MONITOR DC. R CAROTID BENITEZ DRESSING REMOVED PER ORDERS. WILL CONTINUE TO MONITOR.
== END 2020-01-07 14:36 | disposition home health service (06) | DRG 37 ==
LOC: CATH 07:42 → 2N 15:43 → CATH 15:44 → 2N 15:44 → CATH 15:44 → TBA 12-31 10:54 → 2N 12-31 10:54 → ICU 12-31 14:15 → 2N 01-01 11:13
PROVIDERS: Internal Medicine; Internal Medicine Pulmonary Disease; Nurse Practitioner; Pediatrics; Physician Assistant; Surgery Vascular Surgery; ADMIT Nuclear Medicine Nuclear Cardiology; ATTEND Nuclear Medicine Nuclear Cardiology
PROC: B31F1ZZ Fluoroscopy of Left Vertebral Artery using Low Osmolar Contrast (ICD-10-PCS; principal; 2019-12-30)
PROC: B3151ZZ Fluoroscopy of Bilateral Common Carotid Arteries using Low Osmolar Contrast (ICD-10-PCS; principal; 2019-12-30)
PROC: B4181ZZ Fluoroscopy of Bilateral Renal Arteries using Low Osmolar Contrast (ICD-10-PCS; principal; 2019-12-30)
PROC: B2111ZZ Fluoroscopy of Multiple Coronary Arteries using Low Osmolar Contrast (ICD-10-PCS; principal; 2019-12-30)
PROC: 4A023N7 Measurement of Cardiac Sampling and Pressure, Left Heart, Percutaneous Approach (ICD-10-PCS; principal; 2019-12-30)
PROC: B41D1ZZ Fluoroscopy of Aorta and Bilateral Lower Extremity Arteries using Low Osmolar Contrast (ICD-10-PCS; principal; 2019-12-30)
PROC: B2151ZZ Fluoroscopy of Left Heart using Low Osmolar Contrast (ICD-10-PCS; principal; 2019-12-30)
PROC: 03CK0ZZ Extirpation of Matter from Right Internal Carotid Artery, Open Approach (ICD-10-PCS; 2019-12-31)
PROC: 03UK0KZ Supplement Right Internal Carotid Artery with Nonautologous Tissue Substitute, Open Approach (ICD-10-PCS; 2019-12-31)
DX: I65.21 Occlusion and stenosis of right carotid artery (principal); J96.21 Acute and chronic respiratory failure with hypoxia; I50.31 Acute diastolic (congestive) heart failure; I47.2 Ventricular tachycardia; I25.10 Atherosclerotic heart disease of native coronary artery without angina pectoris; Z20.828 Contact with and (suspected) exposure to other viral communicable diseases; I48.0 Paroxysmal atrial fibrillation; E78.5 Hyperlipidemia, unspecified; I73.9 Peripheral vascular disease, unspecified; E78.00 Pure hypercholesterolemia, unspecified; I95.9 Hypotension, unspecified; K59.00 Constipation, unspecified; I77.811 Abdominal aortic ectasia; I11.0 Hypertensive heart disease with heart failure; E66.9 Obesity, unspecified; J43.9 Emphysema, unspecified; Z68.34 Body mass index [BMI] 34.0-34.9, adult; Z79.82 Long term (current) use of aspirin; Z79.899 Other long term (current) drug therapy; Z87.891 Personal history of nicotine dependence; Z95.820 Peripheral vascular angioplasty status with implants and grafts; Z87.442 Personal history of urinary calculi; Z86.14 Personal history of Methicillin resistant Staphylococcus aureus infection
CPT/HCPCS: 10081; 10203; 47375; 50101; 50386; 50417; 51301; 52279; 52287; 54118; 56524; 56526; 56528; 56534; 57254; 62110; 62900; 65020; 65040; 65131; 70005

== ENCOUNTER → 2020-02-08 | Outpatient (CLI) | payer OTHER ==
[~2020-02-08] MED LIST changes: +ALBUTEROL2.5 MG/0.5 INH; +BENAZEPRIL HCL5 MG PO; +CARVEDILOL12.5 MG PO; +DOXYCYCLINE HYC50 MG PO; +HOME OXYGEN; +IPRAT-ALBUT 0.5-3 ML INH; +LANTUS100 UNIT/M SUBQ; +PREDNISONE 20 M20 M1 PO; +PREDNISONE 20 M20 MG PO; +SPIRIVA18 MCG INH; +TAMBOCOR 100 M100 M1 PO; +TRIPLE ANTIBIOT14 GM TOP
== END ==
LOC: SJCVCIMAG 08:23
PROVIDERS: ATTEND Internal Medicine
DX: I65.22 Occlusion and stenosis of left carotid artery (principal); I73.9 Peripheral vascular disease, unspecified; I77.811 Abdominal aortic ectasia; I25.10 Atherosclerotic heart disease of native coronary artery without angina pectoris; E78.00 Pure hypercholesterolemia, unspecified; J43.2 Centrilobular emphysema; I10 Essential (primary) hypertension; I48.91 Unspecified atrial fibrillation; Z79.899 Other long term (current) drug therapy; Z87.891 Personal history of nicotine dependence